=== PATIENT | female | born 2000 | race Caucasian/White ===

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

== ENCOUNTER 2022-06-19 07:47 | Inpatient (IN) | payer MEDICAID, OTHER ==
[~2022-06-19] VITALS: Ht 154.9 cm; Wt 48.3 kg
[~2022-06-19 07:47] MED LIST changes: +ARIP10TA38 PO; -FLUO-191 PO; -MIRT-89 PO; +SERT-439 PO
[2022-06-19] MEDS ORDERED: SODIUM CHLORIDE 0.9% 500 ML IV ONE (08:15)
[2022-06-19 08:48] LABS: BASOPHILS % (AUTO) 0.5 % (0.0-2.0); EOSINOPHILS % (AUTO) 0 % (1.0-6.0); HEMATOCRIT 39.6 % (36-46); HEMOGLOBIN 13.7 g/dL (12.0-16.0); LYMPHOCYTES # (AUTO) 1.2 K/uL (1.0-4.8); LYMPHOCYTES % (AUTO) 15.9 % (22.0-44.0); MEAN CORPUSCULAR HEMOGLOBIN 34.3 pg (26.0-34.0); MEAN CORPUSCULAR HGB CONC 34.5 G/dL (31.0-37.0); MEAN CORPUSCULAR VOLUME 99 fL (80-100); MONOCYTES # (AUTO) 0.6 K/uL (0.1-1.0); MONOCYTES % (AUTO) 7.3 % (2.0-9.0); NEUTROPHILS # (AUTO) 5.9 K/uL (1.8-7.7); NEUTROPHILS % (AUTO) 76.3 % (40.0-70.0); PLATELET COUNT (AUTO) 225 K/uL (150-450); RED BLOOD CELL COUNT(AUTO) 3.98 MIL/uL (4.00-5.20)
[2022-06-19 09:00] LABS: ANION GAP 6 mmol/L (8-16); CALCIUM, TOTAL 9.1 mg/dL (8.8-10.5); CARBON DIOXIDE 29 mmol/L (22-29); CHLORIDE 102 mmol/L (98-107); CREATININE 0.66 mg/dL (0.60-1.30); GLUCOSE,RANDOM 95 mg/dL (70-110); POTASSIUM 3.4 mmol/L (3.5-5.1); SODIUM SERUM 137 mmol/L (136-145); UREA NITROGEN, BLOOD 8 mg/dL (7-18)
[2022-06-19 09:03] LABS: GLOMERULAR FILTR. RATE CALC > 60 mL/min (>60)
[2022-06-19 09:05] LABS: ALANINE AMINOTRANSFERASE 24 U/L (12-78); ALBUMIN 3.9 g/dL (3.4-5.0); ALKALINE PHOSPHATASE 65 U/L (46-116); ASPARTATE AMINOTRANSFERASE 25 U/L (15-37); BILIRUBIN,TOTAL 0.6 mg/dL (0.1-1.0); TOTAL PROTEIN, SERUM 7.2 g/dL (6.4-8.2)
[2022-06-19 09:09] LABS: ACETAMINOPHEN < 2 mcg/mL (10-30)
[2022-06-19 09:15] LABS: SALICYLATE 4.3 mg/dL (2.8-20.0)
[2022-06-19 13:10] LABS: COVID AG,FIA SOURCE NASAL SWAB
[2022-06-19] MEDS ORDERED: ZOLPIDEM TARTRATE 10 MG TABLET PO PRN (16:30)
[2022-06-19] MEDS ORDERED: LORazepam 2 MG TABLET PO PRN (16:30)
[2022-06-19] MEDS ORDERED: HALOPERIDOL 5 MG TABLET PO PRN (16:30)
[2022-06-19 16:36] LABS: SALICYLATE 0.2 mg/dL (2.8-20.0)
[2022-06-19 16:37] LABS: ACETAMINOPHEN < 2 mcg/mL (10-30)
[2022-06-19 17:30] VITALS: BP 91/79
[2022-06-19] MEDS ORDERED: MAG HYDROX/AL HYDROX/SIMETH ES 30 ML SUSPENSION UDCUP PO PRN (20:45)
[2022-06-19] MEDS ORDERED: ONDANSETRON HCL 4 MG TABLET PO PRN (20:45)
[2022-06-19] MEDS ORDERED: ACETAMINOPHEN 325 MG TABLET PO PRN (20:45)
[2022-06-19] MEDS ORDERED: PETROLATUM,WHITE 28 GM JELLY TP PRN (20:45)
[2022-06-19] MEDS ORDERED: GuaiFENesin/D-METHORPHAN [SUGAR-FREE] 200-20MG/10 ML SYRUP UDCUP PO PRN (20:45)
[2022-06-19] MEDS ORDERED: LOPERAMIDE HCL 2 MG CAPSULE PO PRN (20:45)
[2022-06-19] MEDS ORDERED: ALBUTEROL SULFATE HFA 90 MCG/PUFF 8 GM INHALER IH PRN (20:45)
[2022-06-19] MEDS ORDERED: MAGNESIUM HYDROXIDE SUSPENSION 30 ML UDCUP PO PRN (20:45)
[2022-06-19] MEDS ORDERED: IBUPROFEN 400 MG TABLET PO PRN (20:45)
[2022-06-19] MEDS ORDERED: DOCUSATE SODIUM 100 MG CAPSULE PO PRN (20:45)
[2022-06-19] MEDS ORDERED: NICOTINE 14 MG/24 HOUR PATCH TD PRN (20:45)
[2022-06-19] MEDS ORDERED: CloNIDine HCL 0.1 MG TABLET PO PRN (20:45)
[2022-06-19] MEDS: ZONISAMIDE 100 MG CAPSULE PO SCH (23:02)
[2022-06-20 08:00] VITALS: BP 99/62
[2022-06-20] MEDS ORDERED: NICOTINE 14 MG/24 HOUR PATCH TD PRN (11:30)
[2022-06-20] MEDS ORDERED: MAGNESIUM HYDROXIDE SUSPENSION 30 ML UDCUP PO PRN (11:30)
[2022-06-20] MEDS ORDERED: DOCUSATE SODIUM 100 MG CAPSULE PO PRN (11:30)
[2022-06-20] MEDS ORDERED: ONDANSETRON HCL 4 MG TABLET PO PRN (11:30)
[2022-06-20] MEDS ORDERED: ALBUTEROL SULFATE HFA 90 MCG/PUFF 8 GM INHALER IH PRN (11:30)
[2022-06-20] MEDS ORDERED: LOPERAMIDE HCL 2 MG CAPSULE PO PRN (11:30)
[2022-06-20] MEDS ORDERED: ACETAMINOPHEN 325 MG TABLET PO PRN (11:30)
[2022-06-20] MEDS ORDERED: MAG HYDROX/AL HYDROX/SIMETH ES 30 ML SUSPENSION UDCUP PO PRN (11:30)
[2022-06-20] MEDS ORDERED: CloNIDine HCL 0.1 MG TABLET PO PRN (11:30)
[2022-06-20] MEDS ORDERED: PETROLATUM,WHITE 28 GM JELLY TP PRN (11:30)
[2022-06-20] MEDS ORDERED: IBUPROFEN 400 MG TABLET PO PRN (11:30)
[2022-06-20] MEDS: SERTRALINE HCL 50 MG TABLET PO SCH (12:31)
[2022-06-20] MEDS: ARIPiprazole 10 MG TABLET PO SCH (12:31)
[2022-06-20 16:00] VITALS: BP 96/54
[2022-06-20] MEDS: ZONISAMIDE 100 MG CAPSULE PO SCH (21:24)
[2022-06-21 08:22] VITALS: BP 99/63
[2022-06-21] MEDS: ARIPiprazole 10 MG TABLET PO SCH (08:59)
[2022-06-21] MEDS: SERTRALINE HCL 50 MG TABLET PO SCH (08:59)
[2022-06-21 16:00] VITALS: BP 101/70
[2022-06-21 20:08] VITALS: BP 106/66
[2022-06-21] MEDS: ZONISAMIDE 100 MG CAPSULE PO SCH (20:59)
[2022-06-22] MEDS: SERTRALINE HCL 50 MG TABLET PO SCH (09:14)
[2022-06-22] MEDS: ARIPiprazole 10 MG TABLET PO SCH (09:14)
[2022-06-22 09:23] VITALS: BP 112/74
[2022-06-22] MEDS: ZONISAMIDE 100 MG CAPSULE PO SCH (21:18)
[2022-06-23 08:00] VITALS: BP 130/89
[2022-06-23] MEDS: ARIPiprazole 10 MG TABLET PO SCH (09:15)
[2022-06-23] MEDS: SERTRALINE HCL 50 MG TABLET PO SCH (09:15)
[2022-06-23] MEDS: GuaiFENesin/D-METHORPHAN [SUGAR-FREE] 200-20MG/10 ML SYRUP UDCUP PO PRN ×2 (10:36→18:53)
[2022-06-23 16:00] VITALS: BP 105/74
[2022-06-23] MEDS: ZONISAMIDE 100 MG CAPSULE PO SCH (20:43)
[2022-06-24 08:00] VITALS: BP 110/73
[2022-06-24] MEDS: ARIPiprazole 10 MG TABLET PO SCH (09:47)
[2022-06-24] MEDS: GuaiFENesin/D-METHORPHAN [SUGAR-FREE] 200-20MG/10 ML SYRUP UDCUP PO PRN (09:47)
[2022-06-24] MEDS: SERTRALINE HCL 50 MG TABLET PO SCH (09:48)
[2022-06-24] MEDS ORDERED: SERT-439 PO (09:58)
[2022-06-24] MEDS ORDERED: ARIP10TA38 PO (09:58)
== END 2022-06-24 15:10 | disposition home or self-care (01) | DRG 750 ==
LOC: EMS 07:53 → 3EI 16:43
PROVIDERS: ADMIT Psychiatry & Neurology Child & Adolescent Psychiatry; ATTEND Psychiatry & Neurology Child & Adolescent Psychiatry
DX: F25.9 Schizoaffective disorder, unspecified (principal); I95.9 Hypotension, unspecified; R45.851 Suicidal ideations; Z20.822 Contact with and (suspected) exposure to COVID-19; G40.909 Epilepsy, unspecified, not intractable, without status epilepticus; T42.4X2A Poisoning by benzodiazepines, intentional self-harm, initial encounter; E87.6 Hypokalemia; Z91.51 Personal history of suicidal behavior
CPT/HCPCS: 80053; 83735; 84132; 84703; 85025; 93005; G0480; G0481; J7040

== ENCOUNTER 2022-09-03 19:51 | Inpatient (IN) | payer MEDICAID, OTHER ==
[~2022-09-03] VITALS: Ht 152.4 cm; Wt 56.7 kg
[2022-09-03 20:32] LABS: BASOPHILS % (AUTO) 0.5 % (0.0-2.0); EOSINOPHILS % (AUTO) 0.1 % (1.0-6.0); HEMATOCRIT 41.2 % (36-46); HEMOGLOBIN 13.6 g/dL (12.0-16.0); LYMPHOCYTES # (AUTO) 1.3 K/uL (1.0-4.8); LYMPHOCYTES % (AUTO) 19.7 % (22.0-44.0); MEAN CORPUSCULAR VOLUME 100 fL (80-100); MONOCYTES # (AUTO) 0.5 K/uL (0.1-1.0); MONOCYTES % (AUTO) 8.1 % (2.0-9.0); NEUTROPHILS # (AUTO) 4.6 K/uL (1.8-7.7); NEUTROPHILS % (AUTO) 71.6 % (40.0-70.0); PLATELET COUNT (AUTO) 215 K/uL (150-450); RED BLOOD CELL COUNT(AUTO) 4.12 MIL/uL (4.00-5.20); RED CELL DISTRIBUTION WIDTH 12.7 % (11.5-14.5)
[2022-09-03 20:46] LABS: ANION GAP 11 mmol/L (8-16); CALCIUM, TOTAL 8.7 mg/dL (8.8-10.5); CARBON DIOXIDE 23 mmol/L (22-29); CHLORIDE 106 mmol/L (98-107); CREATININE 0.75 mg/dL (0.60-1.30); GLOMERULAR FILTR. RATE CALC > 60 mL/min (>60); GLUCOSE,RANDOM 120 mg/dL (70-110); POTASSIUM 3.4 mmol/L (3.5-5.1); SODIUM SERUM 140 mmol/L (136-145); UREA NITROGEN, BLOOD 12 mg/dL (7-18)
[2022-09-03 20:52] LABS: ALANINE AMINOTRANSFERASE 21 U/L (12-78); ALKALINE PHOSPHATASE 70 U/L (46-116); ASPARTATE AMINOTRANSFERASE 16 U/L (15-37); BILIRUBIN,TOTAL 0.1 mg/dL (0.1-1.0); HCG,QUANTITATIVE < 1 mIU/mL (0-6); TOTAL PROTEIN, SERUM 8.3 g/dL (6.4-8.2)
[2022-09-03 20:54] LABS: ACETAMINOPHEN < 2 mcg/mL (10-30)
[2022-09-03] MEDS ORDERED: CLOB10TA PO (21:44)
[2022-09-03] MEDS ORDERED: PRAZ1 PO (21:44)
[2022-09-03] MEDS ORDERED: ZONI100C87 PO (21:44)
[2022-09-03] MEDS ORDERED: DOCU-385 PO (21:44)
[2022-09-03] MEDS ORDERED: OLAN5TAB52 PO (21:44)
[2022-09-03] MEDS ORDERED: SODIUM CHLORIDE 0.9% 1,000 ML IV ONE (22:15)
[2022-09-03 23:14] LABS: AMPHET/METH SCREEN,URINE NEGATIVE (NEGATIVE); BARBITURATE SCREEN, URINE NEGATIVE (NEGATIVE); BENZODIAZEPINES SCREEN,URINE POSITIVE (NEGATIVE); CANNABINOID SCREEN,URINE NEGATIVE (NEGATIVE); COCAINE SCREEN,URINE NEGATIVE (NEGATIVE); METHADONE SCREEN, URINE NEGATIVE (NEGATIVE); OPIATE SCREEN,URINE NEGATIVE (NEGATIVE)
[2022-09-03 23:19] LABS: PHENCYCLIDINE SCREEN,URINE NEGATIVE (NEGATIVE)
[2022-09-04 00:06] LABS: COVID AG,FIA SOURCE NASAL SWAB
[2022-09-04] MEDS ORDERED: SODIUM CHLORIDE 0.9% 1,000 ML IV ONE ×2 (00:15→01:45)
[2022-09-04] MEDS ORDERED: HALOPERIDOL 5 MG TABLET PO PRN (01:15)
[2022-09-04] MEDS ORDERED: ZOLPIDEM TARTRATE 10 MG TABLET PO PRN (01:15)
[2022-09-04] MEDS ORDERED: LORazepam 2 MG TABLET PO PRN (01:15)
[2022-09-04 01:24] LABS: APPEARANCE,URINE HAZY (CLEAR); BILIRUBIN,URINE NEGATIVE (NEGATIVE); GLUCOSE, URINE (UA) NEGATIVE (NEGATIVE); KETONES,URINE NEGATIVE (NEGATIVE); LEUKOCYTE ESTERASE ,URINE NEGATIVE (NEGATIVE); NITRATE,URINE NEGATIVE (NEGATIVE); OCCULT BLOOD,URINE NEGATIVE (NEGATIVE); PH,URINE 7.5 (5.0-8.0); PROTEIN,URINE NEGATIVE (NEGATIVE); SPECIFIC GRAVITIY, URINE 1.023 (1.003-1.030); UROBILINOGEN,URINE <=1.0 mg/dL (<=1.0)
[2022-09-04] MEDS ORDERED: LORazepam 2 MG/ML VIAL IVP ONE (01:45)
[2022-09-04 03:30] VITALS: BP 103/67
[2022-09-04 08:18] VITALS: BP 91/54
[2022-09-04] MEDS ORDERED: LOPERAMIDE HCL 2 MG CAPSULE PO PRN (10:15)
[2022-09-04] MEDS ORDERED: ALBUTEROL SULFATE HFA 90 MCG/PUFF 8 GM INHALER IH PRN (10:15)
[2022-09-04] MEDS ORDERED: PETROLATUM,WHITE 28 GM JELLY TP PRN (10:15)
[2022-09-04] MEDS ORDERED: ACETAMINOPHEN 325 MG TABLET PO PRN (10:15)
[2022-09-04] MEDS ORDERED: MAG HYDROX/AL HYDROX/SIMETH ES 30 ML SUSPENSION UDCUP PO PRN (10:15)
[2022-09-04] MEDS ORDERED: ONDANSETRON HCL 4 MG TABLET PO PRN (10:15)
[2022-09-04] MEDS ORDERED: IBUPROFEN 400 MG TABLET PO PRN (10:15)
[2022-09-04] MEDS ORDERED: GuaiFENesin/D-METHORPHAN [SUGAR-FREE] 200-20MG/10 ML SYRUP UDCUP PO PRN (10:15)
[2022-09-04] MEDS ORDERED: NICOTINE 14 MG/24 HOUR PATCH TD PRN (10:15)
[2022-09-04] MEDS ORDERED: CloNIDine HCL 0.1 MG TABLET PO PRN (10:15)
[2022-09-04] MEDS: ZONISAMIDE 100 MG CAPSULE PO SCH (10:26)
[2022-09-04] MEDS: SERTRALINE HCL 100 MG TABLET PO SCH (11:32)
[2022-09-04] MEDS: DOCUSATE SODIUM 100 MG CAPSULE PO PRN (14:41)
[2022-09-04] MEDS: MAGNESIUM HYDROXIDE SUSPENSION 30 ML UDCUP PO PRN (14:41)
[2022-09-04 16:17] VITALS: BP 103/64
[2022-09-04] MEDS: CLOBAZAM 10 MG PO SCH (18:34)
[2022-09-04] MEDS: OLANZapine 5 MG TABLET PO SCH (20:08)
[2022-09-04] MEDS: PRAZOSIN HCL 2 MG CAPSULE PO SCH (20:08)
[2022-09-05 08:43] VITALS: BP 105/72
[2022-09-05] MEDS: ZONISAMIDE 100 MG CAPSULE PO SCH (08:58)
[2022-09-05] MEDS: CLOBAZAM 10 MG PO SCH ×2 (08:58→16:21)
[2022-09-05] MEDS: SERTRALINE HCL 100 MG TABLET PO SCH (08:59)
[2022-09-05] MEDS ORDERED: ZONISAMIDE 100 MG CAPSULE PO SCH (09:00)
[2022-09-05 16:09] VITALS: BP 109/75
[2022-09-05] MEDS: PRAZOSIN HCL 2 MG CAPSULE PO SCH (20:43)
[2022-09-05] MEDS: OLANZapine 5 MG TABLET PO SCH (20:43)
[2022-09-06 08:51] VITALS: BP 112/66
[2022-09-06] MEDS: ZONISAMIDE 100 MG CAPSULE PO SCH (09:28)
[2022-09-06] MEDS: CLOBAZAM 10 MG PO SCH ×2 (09:28→17:10)
[2022-09-06] MEDS: SERTRALINE HCL 100 MG TABLET PO SCH (09:28)
[2022-09-06 16:12] VITALS: BP 91/62
[2022-09-06] MEDS: OLANZapine 5 MG TABLET PO SCH (20:37)
[2022-09-06] MEDS: PRAZOSIN HCL 2 MG CAPSULE PO SCH (20:37)
[2022-09-07 08:30] VITALS: BP 124/99
[2022-09-07] MEDS: CLOBAZAM 10 MG PO SCH ×2 (10:30→17:34)
[2022-09-07] MEDS: ZONISAMIDE 100 MG CAPSULE PO SCH (10:30)
[2022-09-07] MEDS: SERTRALINE HCL 100 MG TABLET PO SCH (10:30)
[2022-09-07] MEDS: PRAZOSIN HCL 2 MG CAPSULE PO SCH (20:59)
[2022-09-07] MEDS: OLANZapine 5 MG TABLET PO SCH (20:59)
[2022-09-08] MEDS: CLOBAZAM 10 MG PO SCH ×2 (08:30→16:38)
[2022-09-08] MEDS: SERTRALINE HCL 100 MG TABLET PO SCH (08:30)
[2022-09-08] MEDS: ZONISAMIDE 100 MG CAPSULE PO SCH (08:30)
[2022-09-08 09:37] VITALS: BP 104/58
[2022-09-08 16:12] VITALS: BP 109/78
[2022-09-08] MEDS: OLANZapine 5 MG TABLET PO SCH (20:48)
[2022-09-08] MEDS: PRAZOSIN HCL 2 MG CAPSULE PO SCH (20:49)
[2022-09-09] MEDS: SERTRALINE HCL 100 MG TABLET PO SCH (08:16)
[2022-09-09] MEDS: ZONISAMIDE 100 MG CAPSULE PO SCH (08:16)
[2022-09-09] MEDS: CLOBAZAM 10 MG PO SCH ×2 (08:17→16:03)
[2022-09-09 09:34] VITALS: BP 96/73
[2022-09-09] MEDS: DOCUSATE SODIUM 100 MG CAPSULE PO PRN (15:45)
[2022-09-09 17:07] VITALS: BP 137/97
[2022-09-09] MEDS: PRAZOSIN HCL 2 MG CAPSULE PO SCH (20:55)
[2022-09-09] MEDS: OLANZapine 5 MG TABLET PO SCH (20:55)
[2022-09-10 08:00] LABS: COVID AG,FIA SOURCE NASAL SWAB
[2022-09-10] MEDS: SERTRALINE HCL 100 MG TABLET PO SCH (09:04)
[2022-09-10] MEDS: CLOBAZAM 10 MG PO SCH ×2 (09:04→16:08)
[2022-09-10] MEDS: ZONISAMIDE 100 MG CAPSULE PO SCH (09:05)
[2022-09-10 09:13] VITALS: BP 107/70
[2022-09-10] MEDS: DOCUSATE SODIUM 100 MG CAPSULE PO PRN (12:34)
[2022-09-10 16:28] VITALS: BP 117/65
[2022-09-10] MEDS: PRAZOSIN HCL 2 MG CAPSULE PO SCH (20:24)
[2022-09-10] MEDS: OLANZapine 5 MG TABLET PO SCH (20:24)
[2022-09-10] MEDS: MAGNESIUM HYDROXIDE SUSPENSION 30 ML UDCUP PO PRN (20:27)
[2022-09-11] MEDS: ZONISAMIDE 100 MG CAPSULE PO SCH (09:02)
[2022-09-11] MEDS: SERTRALINE HCL 100 MG TABLET PO SCH (09:02)
[2022-09-11] MEDS: CLOBAZAM 10 MG PO SCH (09:02)
[2022-09-11 09:07] VITALS: BP 117/60
[2022-09-11] MEDS: MAGNESIUM HYDROXIDE SUSPENSION 30 ML UDCUP PO PRN (09:14)
[2022-09-11] MEDS ORDERED: OLAN5TAB52 PO (11:35)
[2022-09-11] MEDS ORDERED: PRAZ2 PO (11:35)
[2022-09-11] MEDS ORDERED: SERT-440 PO (11:35)
== END 2022-09-11 15:00 | disposition home or self-care (01) | DRG 751 ==
LOC: EMS 20:21 → 3EI 09-04 04:05
PROVIDERS: ADMIT Psychiatry & Neurology Psychiatry; ATTEND Psychiatry & Neurology Psychiatry
DX: F33.2 Major depressive disorder, recurrent severe without psychotic features (principal); G40.909 Epilepsy, unspecified, not intractable, without status epilepticus; E87.6 Hypokalemia; Z20.822 Contact with and (suspected) exposure to COVID-19; F41.9 Anxiety disorder, unspecified; R00.0 Tachycardia, unspecified; K59.00 Constipation, unspecified; T43.222A Poisoning by selective serotonin reuptake inhibitors, intentional self-harm, initial encounter; Y92.89 Other specified places as the place of occurrence of the external cause; Z59.00 Homelessness unspecified; Z79.899 Other long term (current) drug therapy
CPT/HCPCS: 80053; 80307; 81003; 83735; 84132; 84702; 85025; 93005; 99285; G0480; G0481; J2060; Q9967

== ENCOUNTER 2022-10-26 21:45 | Inpatient (IN) | payer MEDICAID, OTHER ==
[~2022-10-26] VITALS: Ht 154.9 cm; Wt 51.5 kg
[~2022-10-26 21:45] MED LIST changes: -ARIP10TA38 PO; +OLAN5TAB52 PO; +PRAZ2 PO; -SERT-439 PO; +SERT-440 PO
[2022-10-26 22:47] LABS: AMPHET/METH SCREEN,URINE NEGATIVE (NEGATIVE); BARBITURATE SCREEN, URINE NEGATIVE (NEGATIVE); BENZODIAZEPINES SCREEN,URINE POSITIVE (NEGATIVE); CANNABINOID SCREEN,URINE NEGATIVE (NEGATIVE); COCAINE SCREEN,URINE NEGATIVE (NEGATIVE); METHADONE SCREEN, URINE NEGATIVE (NEGATIVE); OPIATE SCREEN,URINE NEGATIVE (NEGATIVE); PHENCYCLIDINE SCREEN,URINE NEGATIVE (NEGATIVE)
[2022-10-26] MEDS ORDERED: OLANZapine 5 MG RAPDIS TABLET PO PRN (23:15)
[2022-10-26] MEDS ORDERED: LORazepam 2 MG TABLET PO PRN (23:15)
[2022-10-26 23:39] LABS: COVID AG,FIA SOURCE NASOPHARYNGEAL
[2022-10-26 23:42] LABS: BASOPHILS % (AUTO) 0.6 % (0.0-2.0); EOSINOPHILS % (AUTO) 0.1 % (1.0-6.0); HEMATOCRIT 41.6 % (36-46); HEMOGLOBIN 14.1 g/dL (12.0-16.0); LYMPHOCYTES # (AUTO) 1.3 K/uL (1.0-4.8); LYMPHOCYTES % (AUTO) 23.3 % (22.0-44.0); MEAN CORPUSCULAR HEMOGLOBIN 33.2 pg (26.0-34.0); MEAN CORPUSCULAR HGB CONC 33.8 G/dL (31.0-37.0); MEAN CORPUSCULAR VOLUME 98 fL (80-100); MONOCYTES # (AUTO) 0.5 K/uL (0.1-1.0); MONOCYTES % (AUTO) 8.1 % (2.0-9.0); NEUTROPHILS # (AUTO) 3.8 K/uL (1.8-7.7); NEUTROPHILS % (AUTO) 67.9 % (40.0-70.0); PLATELET COUNT (AUTO) 222 K/uL (150-450); RED BLOOD CELL COUNT(AUTO) 4.25 MIL/uL (4.00-5.20); RED CELL DISTRIBUTION WIDTH 12.6 % (11.5-14.5)
[2022-10-26 23:54] LABS: ANION GAP 12 mmol/L (8-16); CALCIUM, TOTAL 9.1 mg/dL (8.8-10.5); CARBON DIOXIDE 26 mmol/L (22-29); CHLORIDE 104 mmol/L (98-107); CREATININE 0.72 mg/dL (0.60-1.30); GLOMERULAR FILTR. RATE CALC > 60 mL/min (>60); GLUCOSE,RANDOM 119 mg/dL (70-110); POTASSIUM 3.2 mmol/L (3.5-5.1); SODIUM SERUM 142 mmol/L (136-145); UREA NITROGEN, BLOOD 4 mg/dL (7-18)
[2022-10-27 00:03] LABS: ALANINE AMINOTRANSFERASE 23 U/L (12-78); ALBUMIN 4.6 g/dL (3.4-5.0); ALKALINE PHOSPHATASE 75 U/L (46-116); ASPARTATE AMINOTRANSFERASE 20 U/L (15-37); BILIRUBIN,TOTAL 0.2 mg/dL (0.1-1.0); HCG,QUANTITATIVE < 1 mIU/mL (0-6); TOTAL PROTEIN, SERUM 8.2 g/dL (6.4-8.2)
[2022-10-27 01:48] LABS: SALICYLATE 0.9 mg/dL (2.8-20.0)
[2022-10-27 01:49] LABS: ACETAMINOPHEN < 2 mcg/mL (10-30)
[2022-10-27 03:39] VITALS: BP 123/68
[2022-10-27 03:47] VITALS: BP 123/68
[2022-10-27 06:52] LABS: APPEARANCE,URINE CLEAR (CLEAR); BILIRUBIN,URINE NEGATIVE (NEGATIVE); GLUCOSE, URINE (UA) NEGATIVE (NEGATIVE); KETONES,URINE NEGATIVE (NEGATIVE); LEUKOCYTE ESTERASE ,URINE NEGATIVE (NEGATIVE); NITRATE,URINE NEGATIVE (NEGATIVE); OCCULT BLOOD,URINE NEGATIVE (NEGATIVE); PH,URINE 7.5 (5.0-8.0); PROTEIN,URINE NEGATIVE (NEGATIVE); SPECIFIC GRAVITIY, URINE 1.007 (1.003-1.030); UROBILINOGEN,URINE <=1.0 mg/dL (<=1.0)
[2022-10-27 09:31] VITALS: BP 105/62
[2022-10-27] MEDS ORDERED: MAGNESIUM HYDROXIDE SUSPENSION 30 ML UDCUP PO PRN (11:00)
[2022-10-27] MEDS ORDERED: HydrOXYzine PAMOATE 50 MG CAPSULE PO PRN (11:00)
[2022-10-27] MEDS ORDERED: LOPERAMIDE HCL 2 MG CAPSULE PO PRN (11:00)
[2022-10-27] MEDS ORDERED: PROMETHAZINE HCL 25 MG TABLET PO PRN (11:00)
[2022-10-27] MEDS ORDERED: ACETAMINOPHEN 325 MG TABLET PO PRN (11:00)
[2022-10-27] MEDS ORDERED: MAG HYDROX/AL HYDROX/SIMETH ES 30 ML SUSPENSION UDCUP PO PRN (11:00)
[2022-10-27] MEDS ORDERED: GuaiFENesin/D-METHORPHAN [SUGAR-FREE] 200-20MG/10 ML SYRUP UDCUP PO PRN (11:00)
[2022-10-27] MEDS ORDERED: TUBERCULIN, PURIFIED PROTEIN DERIVATIVE 5 TU/0.1 ML SYRINGE ID ONE (11:00)
[2022-10-27 16:00] VITALS: BP 99/66
[2022-10-27] MEDS: THIAMINE 100 MG TABLET PO SCH (18:00)
[2022-10-27] MEDS ORDERED: POTASSIUM CHLORIDE 20 MEQ ER TABLET PO ONE (20:30)
[2022-10-27] MEDS: MELATONIN 5 MG TABLET PO SCH (20:53)
[2022-10-27 20:55] VITALS: BP 145/95
[2022-10-28 07:45] LABS: HEMOGLOBIN A1C 4.9 % (3.8-5.6)
[2022-10-28 07:50] LABS: ANION GAP 7 mmol/L (8-16); CARBON DIOXIDE 28 mmol/L (22-29); CHLORIDE 105 mmol/L (98-107); CREATININE 0.65 mg/dL (0.60-1.30); GLOMERULAR FILTR. RATE CALC > 60 mL/min (>60); GLUCOSE,RANDOM 88 mg/dL (70-110); SODIUM SERUM 140 mmol/L (136-145); UREA NITROGEN, BLOOD 8 mg/dL (7-18)
[2022-10-28 08:08] LABS: CHOL/HDL RATIO 2.9 (3.9-5.7); THYROID STIMULATING HORMONE 0.84 uIU/mL (0.36-3.74)
[2022-10-28] MEDS: OMEGA-3/DHA/EPA/FISH OIL 1,000 MG CAPSULE PO SCH (08:10)
[2022-10-28] MEDS: NALTREXONE HCL 50 MG TABLET PO SCH (08:10)
[2022-10-28] MEDS: FOLIC ACID 1 MG TABLET PO SCH (08:10)
[2022-10-28] MEDS: THIAMINE 100 MG TABLET PO SCH ×2 (08:10→16:54)
[2022-10-28] MEDS: DEXTROMETHORPHAN HBR/QUINIDINE 20/10 MG CAPSULE PO SCH (08:10)
[2022-10-28] MEDS: MULTIVITAMINS WITH MINERALS, THERAPEUTIC TABLET PO SCH (08:10)
[2022-10-28 08:30] VITALS: BP 113/68
[2022-10-28] MEDS ORDERED: FLUoxetine HCL 20 MG CAPSULE PO SCH (09:00)
[2022-10-28] MEDS: ZONISAMIDE 100 MG CAPSULE PO SCH (11:53)
[2022-10-28 16:15] VITALS: BP 110/70
[2022-10-28] MEDS: LURASIDONE HCL 20 MG TABLET PO SCH (16:54)
[2022-10-28] MEDS: MELATONIN 5 MG TABLET PO SCH (21:16)
[2022-10-28 21:21] VITALS: BP 111/71
[2022-10-28] MEDS: ZOLPIDEM TARTRATE 10 MG TABLET PO PRN (21:57)
[2022-10-29] MEDS: FLUoxetine HCL 20 MG CAPSULE PO SCH (08:58)
[2022-10-29] MEDS: THIAMINE 100 MG TABLET PO SCH ×2 (08:58→17:31)
[2022-10-29 08:59] VITALS: BP 111/63
[2022-10-29] MEDS: OMEGA-3/DHA/EPA/FISH OIL 1,000 MG CAPSULE PO SCH (09:00)
[2022-10-29] MEDS: FOLIC ACID 1 MG TABLET PO SCH (09:01)
[2022-10-29] MEDS: MULTIVITAMINS WITH MINERALS, THERAPEUTIC TABLET PO SCH (09:01)
[2022-10-29] MEDS: NALTREXONE HCL 50 MG TABLET PO SCH (09:02)
[2022-10-29] MEDS: ZONISAMIDE 100 MG CAPSULE PO SCH (09:04)
[2022-10-29] MEDS: DEXTROMETHORPHAN HBR/QUINIDINE 20/10 MG CAPSULE PO SCH (09:04)
[2022-10-29] MEDS: LURASIDONE HCL 20 MG TABLET PO SCH (17:31)
[2022-10-29 20:36] VITALS: BP 123/85
[2022-10-29] MEDS: MELATONIN 5 MG TABLET PO SCH (20:52)
[2022-10-29] MEDS ORDERED: PRAZOSIN HCL 1 MG CAPSULE PO SCH (21:00)
[2022-10-29] MEDS ORDERED: NALT50TA PO (21:05)
[2022-10-29] MEDS ORDERED: LURA20TA2 PO (21:05)
[2022-10-29] MEDS ORDERED: FLUO20CA36 PO (21:05)
[2022-10-29] MEDS ORDERED: MELA5TAB40 PO (21:05)
[2022-10-29] MEDS ORDERED: OMEG-135 PO (21:05)
[2022-10-29] MEDS ORDERED: PRAZ1 PO (21:05)
[2022-10-29] MEDS: ZOLPIDEM TARTRATE 10 MG TABLET PO PRN (21:45)
[2022-10-30] MEDS: ZONISAMIDE 100 MG CAPSULE PO SCH (08:18)
[2022-10-30] MEDS: DEXTROMETHORPHAN HBR/QUINIDINE 20/10 MG CAPSULE PO SCH (08:18)
[2022-10-30] MEDS: MULTIVITAMINS WITH MINERALS, THERAPEUTIC TABLET PO SCH (08:21)
[2022-10-30] MEDS: THIAMINE 100 MG TABLET PO SCH (08:21)
[2022-10-30] MEDS: OMEGA-3/DHA/EPA/FISH OIL 1,000 MG CAPSULE PO SCH (08:21)
[2022-10-30] MEDS: NALTREXONE HCL 50 MG TABLET PO SCH (08:21)
[2022-10-30] MEDS: FLUoxetine HCL 20 MG CAPSULE PO SCH (08:21)
[2022-10-30] MEDS: FOLIC ACID 1 MG TABLET PO SCH (08:21)
== END 2022-10-30 13:15 | disposition home or self-care (01) | DRG 750 ==
LOC: EMS 21:48 → 3EI 23:00
PROVIDERS: ADMIT Psychiatry & Neurology Psychiatry; ATTEND Psychiatry & Neurology Psychiatry
DX: F25.1 Schizoaffective disorder, depressive type (principal); E87.6 Hypokalemia; Z20.822 Contact with and (suspected) exposure to COVID-19; F43.10 Post-traumatic stress disorder, unspecified; K59.00 Constipation, unspecified; Z55.9 Problems related to education and literacy, unspecified; Z59.9 Problem related to housing and economic circumstances, unspecified; Z65.3 Problems related to other legal circumstances; Z63.9 Problem related to primary support group, unspecified; Z91.51 Personal history of suicidal behavior; Z82.49 Family history of ischemic heart disease and other diseases of the circulatory system
CPT/HCPCS: 80048; 80053; 80061; 80307; 81003; 83036; 84439; 84443; 84702; 85025; 86592; 93005; G0480; G0481; Q9967

== ENCOUNTER 2023-01-13 23:57 | Inpatient (IN) | payer MEDICAID ==
[~2023-01-13] VITALS: Ht 154.9 cm; Wt 49.0 kg
[~2023-01-13 23:57] MED LIST changes: +FLUO20CA36 PO; +LURA20TA2 PO; +MELA5TAB40 PO; +NALT50TA PO; -OLAN5TAB52 PO; +OMEG-135 PO; +PRAZ1 PO; -PRAZ2 PO; -SERT-440 PO
[2023-01-14 01:27] LABS: BASOPHILS % (AUTO) 0.7 % (0.0-2.0); EOSINOPHILS % (AUTO) 0.6 % (1.0-6.0); HEMATOCRIT 37.5 % (36-46); HEMOGLOBIN 12.8 g/dL (12.0-16.0); LYMPHOCYTES # (AUTO) 2.6 K/uL (1.0-4.8); LYMPHOCYTES % (AUTO) 32.9 % (22.0-44.0); MEAN CORPUSCULAR HEMOGLOBIN 33.7 pg (26.0-34.0); MEAN CORPUSCULAR HGB CONC 34.2 G/dL (31.0-37.0); MEAN CORPUSCULAR VOLUME 99 fL (80-100); MONOCYTES # (AUTO) 0.7 K/uL (0.1-1.0); MONOCYTES % (AUTO) 9.5 % (2.0-9.0); NEUTROPHILS # (AUTO) 4.4 K/uL (1.8-7.7); NEUTROPHILS % (AUTO) 56.3 % (40.0-70.0); PLATELET COUNT (AUTO) 239 K/uL (150-450); RED CELL DISTRIBUTION WIDTH 12.6 % (11.5-14.5)
[2023-01-14 01:37] LABS: ANION GAP 12 mmol/L (8-16); CARBON DIOXIDE 27 mmol/L (22-29); CHLORIDE 102 mmol/L (98-107); CREATININE 0.64 mg/dL (0.60-1.30); GLOMERULAR FILTR. RATE CALC > 60 mL/min (>60); GLUCOSE,RANDOM 111 mg/dL (70-110); POTASSIUM 3.1 mmol/L (3.5-5.1); SODIUM SERUM 141 mmol/L (136-145)
[2023-01-14 01:43] LABS: ACETAMINOPHEN < 2 mcg/mL (10-30); ALANINE AMINOTRANSFERASE 11 U/L (12-78); ALBUMIN 3.8 g/dL (3.4-5.0); ALKALINE PHOSPHATASE 68 U/L (46-116); ASPARTATE AMINOTRANSFERASE 12 U/L (15-37); BILIRUBIN,TOTAL 0.2 mg/dL (0.1-1.0); TOTAL PROTEIN, SERUM 7.3 g/dL (6.4-8.2)
[2023-01-14 01:51] LABS: SALICYLATE 0.6 mg/dL (2.8-20.0)
[2023-01-14] MEDS ORDERED: LORazepam 2 MG TABLET PO PRN (02:15)
[2023-01-14] MEDS ORDERED: HALOPERIDOL 5 MG TABLET PO PRN (02:15)
[2023-01-14] MEDS ORDERED: ZOLPIDEM TARTRATE 10 MG TABLET PO PRN (02:15)
[2023-01-14 02:48] LABS: APPEARANCE,URINE TURBID (CLEAR); BILIRUBIN,URINE NEGATIVE (NEGATIVE); GLUCOSE, URINE (UA) NEGATIVE (NEGATIVE); KETONES,URINE NEGATIVE (NEGATIVE); LEUKOCYTE ESTERASE ,URINE TRACE (NEGATIVE); NITRATE,URINE NEGATIVE (NEGATIVE); OCCULT BLOOD,URINE NEGATIVE (NEGATIVE); PH,URINE 6.5 (5.0-8.0); PROTEIN,URINE TRACE mg/dL (NEGATIVE); SPECIFIC GRAVITIY, URINE 1.014 (1.003-1.030); UROBILINOGEN,URINE <=1.0 mg/dL (<=1.0)
[2023-01-14 02:55] LABS: AMPHET/METH SCREEN,URINE NEGATIVE (NEGATIVE); BARBITURATE SCREEN, URINE NEGATIVE (NEGATIVE); BENZODIAZEPINES SCREEN,URINE POSITIVE (NEGATIVE); CANNABINOID SCREEN,URINE NEGATIVE (NEGATIVE); COCAINE SCREEN,URINE NEGATIVE (NEGATIVE); METHADONE SCREEN, URINE NEGATIVE (NEGATIVE); OPIATE SCREEN,URINE NEGATIVE (NEGATIVE); PHENCYCLIDINE SCREEN,URINE NEGATIVE (NEGATIVE)
[2023-01-14 03:09] LABS: COVID AG,FIA SOURCE NASOPHARYNGEAL
[2023-01-14 03:10] LABS: AMORPHOUS SEDIMENT,UR Many /LPF (None Seen); BACTERIA,URINE None Seen /HPF (None Seen); RBC,URINE None Seen /HPF (0-2); SQUAMOUS EPITHELIAL CELL,UR Many /LPF (None Seen); URIC ACID CRYSTALS,URINE Few /LPF (None Seen); WBC,URINE 0-2 /HPF (0-5)
[2023-01-14] MEDS ORDERED: POTASSIUM CHLORIDE 10% 40 MEQ/30 ML LIQUID UDCUP PO ONE (03:45)
[2023-01-14 13:05] VITALS: BP 107/62
[2023-01-14] MEDS ORDERED: ONDANSETRON HCL 4 MG TABLET PO PRN (17:15)
[2023-01-14] MEDS ORDERED: BACITRACIN 28 GM OINTMENT TP PRN (17:15)
[2023-01-14] MEDS ORDERED: IBUPROFEN 600 MG TABLET PO PRN (17:15)
[2023-01-14] MEDS ORDERED: CloNIDine HCL 0.1 MG TABLET PO PRN (17:15)
[2023-01-14] MEDS ORDERED: ACETAMINOPHEN 325 MG TABLET PO PRN (17:15)
[2023-01-14] MEDS ORDERED: PETROLATUM,WHITE 28 GM JELLY TP PRN (17:15)
[2023-01-14] MEDS ORDERED: LOPERAMIDE HCL 2 MG CAPSULE PO PRN (17:15)
[2023-01-14] MEDS ORDERED: OMEPRAZOLE 20 MG CAPSULE PO PRN (17:15)
[2023-01-14] MEDS ORDERED: MAG HYDROX/AL HYDROX/SIMETH ES 30 ML SUSPENSION UDCUP PO PRN (17:15)
[2023-01-14] MEDS ORDERED: POTASSIUM CHLORIDE 20 MEQ ER TABLET PO ONE (17:15)
[2023-01-14] MEDS ORDERED: ALBUTEROL SULFATE HFA 90 MCG/PUFF 8 GM INHALER IH PRN (17:15)
[2023-01-14 20:31] VITALS: BP 99/63
[2023-01-15] MEDS: MAGNESIUM HYDROXIDE SUSPENSION 30 ML UDCUP PO PRN (12:34)
[2023-01-15 20:38] VITALS: BP 104/62
[2023-01-15] MEDS: ZONISAMIDE 100 MG CAPSULE PO SCH ×2 (21:00→22:17)
[2023-01-15] MEDS: DOCUSATE SODIUM 100 MG CAPSULE PO PRN (21:25)
[2023-01-16 07:07] LABS: HEPATITIS C AB (EIA) Non Reactive (Non Reactive)
[2023-01-16 09:02] VITALS: BP 100/60
[2023-01-16 20:32] VITALS: BP 102/63
[2023-01-16] MEDS: ZONISAMIDE 100 MG CAPSULE PO SCH (20:39)
[2023-01-17 08:19] VITALS: BP 107/62
[2023-01-17] MEDS: OLANZapine 7.5 MG TABLET PO SCH (08:22)
[2023-01-17] MEDS: SERTRALINE HCL 100 MG TABLET PO SCH (08:22)
[2023-01-17] MEDS: MAGNESIUM HYDROXIDE SUSPENSION 30 ML UDCUP PO PRN (09:59)
[2023-01-17] MEDS: ZONISAMIDE 100 MG CAPSULE PO SCH (20:29)
[2023-01-17 22:12] VITALS: BP 97/65
[2023-01-18 04:00] VITALS: BP 116/61
[2023-01-18] MEDS: SERTRALINE HCL 100 MG TABLET PO SCH (09:09)
[2023-01-18] MEDS: OLANZapine 7.5 MG TABLET PO SCH (09:09)
[2023-01-18] MEDS: DOCUSATE SODIUM 100 MG CAPSULE PO PRN (17:49)
[2023-01-18] MEDS: ZONISAMIDE 100 MG CAPSULE PO SCH (21:31)
[2023-01-18 22:25] VITALS: BP 105/85
[2023-01-19] MEDS: SERTRALINE HCL 100 MG TABLET PO SCH (08:12)
[2023-01-19] MEDS: OLANZapine 7.5 MG TABLET PO SCH (08:13)
[2023-01-19 08:38] VITALS: BP 109/76
[2023-01-19] MEDS: DOCUSATE SODIUM 100 MG CAPSULE PO PRN (12:05)
[2023-01-19] MEDS: MAGNESIUM HYDROXIDE SUSPENSION 30 ML UDCUP PO PRN (12:07)
[2023-01-19 20:15] VITALS: BP 122/73
[2023-01-19] MEDS: ZONISAMIDE 100 MG CAPSULE PO SCH (20:17)
[2023-01-20] MEDS: OLANZapine 7.5 MG TABLET PO SCH (08:04)
[2023-01-20] MEDS: SERTRALINE HCL 100 MG TABLET PO SCH (08:04)
[2023-01-20 08:09] VITALS: BP 100/65
[2023-01-20] MEDS: MAGNESIUM HYDROXIDE SUSPENSION 30 ML UDCUP PO PRN (08:32)
[2023-01-20] MEDS: DOCUSATE SODIUM 100 MG CAPSULE PO PRN (08:32)
[2023-01-20 20:03] VITALS: BP 104/67
[2023-01-20] MEDS: ZONISAMIDE 100 MG CAPSULE PO SCH (20:06)
[2023-01-21 05:08] LABS: HSV 1 TYPE SPECIFIC IGG <0.91 index (0.00-0.90)
[2023-01-21 07:07] LABS: HIV 1-2 SCREEN 4TH GEN W/RFLX Non Reactive (Non Reactive)
[2023-01-21] MEDS: SERTRALINE HCL 100 MG TABLET PO SCH (08:17)
[2023-01-21] MEDS: OLANZapine 7.5 MG TABLET PO SCH (08:17)
[2023-01-21 08:45] VITALS: BP 101/62
[2023-01-21] MEDS ORDERED: OLAN7.5T22 PO (11:23)
[2023-01-21] MEDS ORDERED: SERT-162 PO (11:24)
[2023-01-21] MEDS ORDERED: ZONI100C87 PO (11:25)
== END 2023-01-21 13:29 | disposition home or self-care (01) | DRG 750 ==
LOC: EMS 23:59 → B2S 01-14 09:42 → B3A 01-19 20:25
PROVIDERS: ADMIT Psychiatry & Neurology Psychiatry; ATTEND Psychiatry & Neurology Psychiatry
DX: F25.9 Schizoaffective disorder, unspecified (principal); F33.2 Major depressive disorder, recurrent severe without psychotic features; R45.851 Suicidal ideations; Z20.822 Contact with and (suspected) exposure to COVID-19; E87.6 Hypokalemia; F41.9 Anxiety disorder, unspecified; G40.909 Epilepsy, unspecified, not intractable, without status epilepticus; G47.00 Insomnia, unspecified; L30.9 Dermatitis, unspecified; T42.4X2A Poisoning by benzodiazepines, intentional self-harm, initial encounter; Y92.89 Other specified places as the place of occurrence of the external cause; Z79.899 Other long term (current) drug therapy
CPT/HCPCS: 80053; 80307; 81001; 84132; 84703; 85025; 86631; 86695; 86696; 86709; 86803; 87389; 99285; G0480; G0481

== ENCOUNTER 2023-02-13 18:56 | Emergency (ER) | payer MEDICAID, OTHER ==
[~2023-02-13] VITALS: Ht 152.4 cm; Wt 47.7 kg
[~2023-02-13 18:56] MED LIST changes: -FLUO20CA36 PO; -LURA20TA2 PO; -MELA5TAB40 PO; -NALT50TA PO; +OLAN7.5T22 PO; -OMEG-135 PO; -PRAZ1 PO; +SERT-162 PO; +ZONI100C87 PO
[2023-02-13 19:14] VITALS: BP 109/70; PULSE 100; RESP 16; TEMP 98.3
[2023-02-13] MEDS ORDERED: DIPH25CA85 PO (19:25)
== END 2023-02-13 19:50 | disposition home or self-care (01) ==
LOC: EMS 18:57
DX: L30.9 Dermatitis, unspecified (principal); F41.9 Anxiety disorder, unspecified; F32.A Depression, unspecified; F20.9 Schizophrenia, unspecified
CPT/HCPCS: 99282; Z7502

== ENCOUNTER 2023-04-15 19:37 | Emergency (ER) | payer OTHER ==
[~2023-04-15] VITALS: Ht 157.5 cm; Wt 45.5 kg
[~2023-04-15 19:37] MED LIST changes: +DIPH25CA85 PO
[2023-04-15 20:00] VITALS: TEMP 98.2
[2023-04-15] MEDS ORDERED: LORazepam 1 MG TABLET PO ONE (20:45)
[2023-04-15] MEDS ORDERED: OLANZapine 5 MG TABLET PO ONE (20:45)
[2023-04-15 20:58] LABS: BASOPHILS % (AUTO) 0.7 % (0.0-2.0); EOSINOPHILS % (AUTO) 0.1 % (1.0-6.0); HEMATOCRIT 39.4 % (36-46); HEMOGLOBIN 13.1 g/dL (12.0-16.0); LYMPHOCYTES # (AUTO) 1.7 K/uL (1.0-4.8); LYMPHOCYTES % (AUTO) 21.2 % (22.0-44.0); MEAN CORPUSCULAR HEMOGLOBIN 32.9 pg (26.0-34.0); MEAN CORPUSCULAR HGB CONC 33.2 G/dL (31.0-37.0); MEAN CORPUSCULAR VOLUME 99 fL (80-100); MONOCYTES # (AUTO) 0.7 K/uL (0.1-1.0); MONOCYTES % (AUTO) 9.4 % (2.0-9.0); NEUTROPHILS # (AUTO) 5.4 K/uL (1.8-7.7); NEUTROPHILS % (AUTO) 68.6 % (40.0-70.0); PLATELET COUNT (AUTO) 263 K/uL (150-450); RED BLOOD CELL COUNT(AUTO) 3.98 MIL/uL (4.00-5.20); RED CELL DISTRIBUTION WIDTH 12.6 % (11.5-14.5); WHITE BLOOD COUNT (AUTO) 7.8 K/uL (4.5-11.0)
[2023-04-15 21:11] LABS: ANION GAP 11 mmol/L (8-16); CALCIUM, TOTAL 8.8 mg/dL (8.8-10.5); CARBON DIOXIDE 23 mmol/L (22-29); CHLORIDE 102 mmol/L (98-107); GLOMERULAR FILTR. RATE CALC > 60 mL/min (>60); GLUCOSE,RANDOM 96 mg/dL (70-110); POTASSIUM 3.4 mmol/L (3.5-5.1); SODIUM SERUM 136 mmol/L (136-145); UREA NITROGEN, BLOOD 6 mg/dL (7-18)
[2023-04-15 21:16] LABS: ALANINE AMINOTRANSFERASE 11 U/L (12-78); ALBUMIN 3.9 g/dL (3.4-5.0); ALKALINE PHOSPHATASE 86 U/L (46-116); ASPARTATE AMINOTRANSFERASE 13 U/L (15-37); BILIRUBIN,TOTAL 0.2 mg/dL (0.1-1.0); TOTAL PROTEIN, SERUM 7.7 g/dL (6.4-8.2)
[2023-04-15 21:21] LABS: ALCOHOL, BLOOD (SERUM) < 3 mg/dL (0-10)
[2023-04-16 05:00] VITALS: BP 128/64; PULSE 90; RESP 18
[2023-04-16 07:14] LABS: ALCOHOL, URINE DRUG SCREEN NEGATIVE (NEGATIVE); AMPHET/METH SCREEN,URINE NEGATIVE (NEGATIVE); BARBITURATE SCREEN, URINE NEGATIVE (NEGATIVE); BENZODIAZEPINES SCREEN,URINE POSITIVE (NEGATIVE); CANNABINOID SCREEN,URINE NEGATIVE (NEGATIVE); COCAINE SCREEN,URINE NEGATIVE (NEGATIVE); METHADONE SCREEN, URINE NEGATIVE (NEGATIVE); OPIATE SCREEN,URINE NEGATIVE (NEGATIVE); PHENCYCLIDINE SCREEN,URINE NEGATIVE (NEGATIVE)
== END 2023-04-15 22:00 | disposition home or self-care (01) ==
LOC: EMS 19:38
DX: F41.9 Anxiety disorder, unspecified (principal); F32.A Depression, unspecified; F20.9 Schizophrenia, unspecified
CPT/HCPCS: 99283; 80053; 84703; 85025; 36415; 80307; G0480

== ENCOUNTER 2023-04-19 21:58 | Emergency (ER) | payer OTHER ==
[~2023-04-19] VITALS: Ht 157.5 cm; Wt 65.0 kg
[2023-04-19 22:09] VITALS: TEMP 98
[2023-04-19 23:17] LABS: BASOPHILS % (AUTO) 0.7 % (0.0-2.0); EOSINOPHILS % (AUTO) 0.5 % (1.0-6.0); HEMATOCRIT 38.8 % (36-46); HEMOGLOBIN 12.7 g/dL (12.0-16.0); LYMPHOCYTES # (AUTO) 2.3 K/uL (1.0-4.8); MEAN CORPUSCULAR HEMOGLOBIN 32.5 pg (26.0-34.0); MEAN CORPUSCULAR HGB CONC 32.7 G/dL (31.0-37.0); MEAN CORPUSCULAR VOLUME 100 fL (80-100); MONOCYTES # (AUTO) 0.8 K/uL (0.1-1.0); MONOCYTES % (AUTO) 9.4 % (2.0-9.0); NEUTROPHILS # (AUTO) 5.7 K/uL (1.8-7.7); NEUTROPHILS % (AUTO) 63.4 % (40.0-70.0); PLATELET COUNT (AUTO) 252 K/uL (150-450); RED CELL DISTRIBUTION WIDTH 12.6 % (11.5-14.5); WHITE BLOOD COUNT (AUTO) 8.9 K/uL (4.5-11.0)
[2023-04-19 23:29] LABS: ANION GAP 11 mmol/L (8-16); CALCIUM, TOTAL 8.8 mg/dL (8.8-10.5); CARBON DIOXIDE 21 mmol/L (22-29); CHLORIDE 104 mmol/L (98-107); CREATININE 0.58 mg/dL (0.60-1.30); GLOMERULAR FILTR. RATE CALC > 60 mL/min (>60); GLUCOSE,RANDOM 107 mg/dL (70-110); POTASSIUM 3.6 mmol/L (3.5-5.1); SODIUM SERUM 136 mmol/L (136-145); UREA NITROGEN, BLOOD 8 mg/dL (7-18)
[2023-04-19 23:36] LABS: B-TYPE NATRIURETIC PEPTIDE < 5 pg/mL (0-100)
[2023-04-19 23:37] LABS: TROPONIN I-HIGH SENSITIVITY Less Than 4 ng/L (<51)
[2023-04-19 23:40] LABS: ALANINE AMINOTRANSFERASE 9 U/L (12-78); ALBUMIN 3.8 g/dL (3.4-5.0); ALKALINE PHOSPHATASE 80 U/L (46-116); ASPARTATE AMINOTRANSFERASE 12 U/L (15-37); BILIRUBIN,TOTAL 0.3 mg/dL (0.1-1.0); CREATINE KINASE, TOTAL ONLY 78 U/L (26-192); TOTAL PROTEIN, SERUM 7.5 g/dL (6.4-8.2)
[2023-04-19 23:42] LABS: ALCOHOL, BLOOD (SERUM) < 3 mg/dL (0-10)
[2023-04-20 01:00] VITALS: BP 125/77; PULSE 79; RESP 20
== END 2023-04-20 01:20 | disposition home or self-care (01) ==
LOC: EMS 21:58
DX: R42 Dizziness and giddiness (principal); F41.9 Anxiety disorder, unspecified; F32.A Depression, unspecified; F20.9 Schizophrenia, unspecified; R56.9 Unspecified convulsions
CPT/HCPCS: 99284; 80053; 82550; 83880; 84484; 84703; 85025; 36415; 93005; G0480

== ENCOUNTER 2023-04-23 18:25 | Emergency (ER) | payer OTHER ==
[~2023-04-23] VITALS: Ht 152.4 cm; Wt 45.5 kg
[2023-04-23 18:42] VITALS: TEMP 97.8
[2023-04-23] MEDS ORDERED: CLOB10TA17 PO (19:50)
[2023-04-23] MEDS ORDERED: DOCU100C33 PO (19:50)
[2023-04-23] MEDS ORDERED: IBUPROFEN 400 MG TABLET PO ONE (20:00)
[2023-04-23 20:08] LABS: BASOPHILS % (AUTO) 0.4 % (0.0-2.0); EOSINOPHILS % (AUTO) 0 % (1.0-6.0); HEMOGLOBIN 13.3 g/dL (12.0-16.0); LYMPHOCYTES # (AUTO) 1.2 K/uL (1.0-4.8); LYMPHOCYTES % (AUTO) 11.7 % (22.0-44.0); MEAN CORPUSCULAR HGB CONC 33.3 G/dL (31.0-37.0); MEAN CORPUSCULAR VOLUME 99 fL (80-100); MONOCYTES # (AUTO) 0.6 K/uL (0.1-1.0); MONOCYTES % (AUTO) 6.3 % (2.0-9.0); NEUTROPHILS # (AUTO) 8.3 K/uL (1.8-7.7); NEUTROPHILS % (AUTO) 81.6 % (40.0-70.0); PLATELET COUNT (AUTO) 264 K/uL (150-450); RED BLOOD CELL COUNT(AUTO) 4.04 MIL/uL (4.00-5.20); RED CELL DISTRIBUTION WIDTH 12.8 % (11.5-14.5); WHITE BLOOD COUNT (AUTO) 10.2 K/uL (4.5-11.0)
[2023-04-23 20:17] LABS: ANION GAP 12 mmol/L (8-16); CALCIUM, TOTAL 9.1 mg/dL (8.8-10.5); CARBON DIOXIDE 23 mmol/L (22-29); CHLORIDE 105 mmol/L (98-107); GLOMERULAR FILTR. RATE CALC > 60 mL/min (>60); GLUCOSE,RANDOM 106 mg/dL (70-110); POTASSIUM 3.4 mmol/L (3.5-5.1); SODIUM SERUM 140 mmol/L (136-145); UREA NITROGEN, BLOOD 7 mg/dL (7-18)
[2023-04-23 20:21] LABS: ALANINE AMINOTRANSFERASE 12 U/L (12-78); ALBUMIN 4.1 g/dL (3.4-5.0); ALKALINE PHOSPHATASE 85 U/L (46-116); ASPARTATE AMINOTRANSFERASE 13 U/L (15-37); BILIRUBIN,TOTAL 0.2 mg/dL (0.1-1.0)
[2023-04-23 20:39] LABS: COVID AG,FIA SOURCE NASAL SWAB
[2023-04-23 21:02] LABS: SARS-COV2 (COVID) ANTIGEN,FIA Negative (Negative)
[2023-04-23 21:58] VITALS: BP 128/82; PULSE 110; RESP 16
== END 2023-04-23 22:07 | disposition home or self-care (01) ==
LOC: EMS 18:26
DX: R09.1 Pleurisy (principal); F41.9 Anxiety disorder, unspecified; F32.A Depression, unspecified; F20.9 Schizophrenia, unspecified; Z20.822 Contact with and (suspected) exposure to COVID-19
CPT/HCPCS: 71045; 80053; 84703; 85025; 93005; 99285; 36415-L1; 36415-TC

== ENCOUNTER 2023-04-26 21:21 | Emergency (ER) | payer OTHER ==
[~2023-04-26] VITALS: Ht 157.5 cm; Wt 45.0 kg
[~2023-04-26 21:21] MED LIST changes: +CLOB10TA17 PO; +DOCU100C33 PO
[2023-04-26 21:36] VITALS: BP 116/68; PULSE 109; RESP 15
[2023-04-26 22:21] LABS: ANION GAP 12 mmol/L (8-16); BASOPHILS % (AUTO) 0.5 % (0.0-2.0); CALCIUM, TOTAL 9.3 mg/dL (8.8-10.5); CARBON DIOXIDE 23 mmol/L (22-29); CHLORIDE 103 mmol/L (98-107); CREATININE 0.79 mg/dL (0.60-1.30); EOSINOPHILS % (AUTO) 0.2 % (1.0-6.0); GLOMERULAR FILTR. RATE CALC > 60 mL/min (>60); GLUCOSE,RANDOM 100 mg/dL (70-110); HEMATOCRIT 39.6 % (36-46); HEMOGLOBIN 13.3 g/dL (12.0-16.0); LYMPHOCYTES # (AUTO) 2.3 K/uL (1.0-4.8); LYMPHOCYTES % (AUTO) 24.5 % (22.0-44.0); MEAN CORPUSCULAR HGB CONC 33.5 G/dL (31.0-37.0); MEAN CORPUSCULAR VOLUME 99 fL (80-100); MONOCYTES # (AUTO) 0.7 K/uL (0.1-1.0); NEUTROPHILS # (AUTO) 6.5 K/uL (1.8-7.7); NEUTROPHILS % (AUTO) 67.8 % (40.0-70.0); PLATELET COUNT (AUTO) 256 K/uL (150-450); RED BLOOD CELL COUNT(AUTO) 4.02 MIL/uL (4.00-5.20); RED CELL DISTRIBUTION WIDTH 12.9 % (11.5-14.5); SODIUM SERUM 138 mmol/L (136-145); UREA NITROGEN, BLOOD 12 mg/dL (7-18); WHITE BLOOD COUNT (AUTO) 9.6 K/uL (4.5-11.0)
[2023-04-26 22:27] LABS: ALANINE AMINOTRANSFERASE 8 U/L (12-78); ALBUMIN 4.2 g/dL (3.4-5.0); ALKALINE PHOSPHATASE 84 U/L (46-116); ASPARTATE AMINOTRANSFERASE 10 U/L (15-37); BILIRUBIN,TOTAL 0.2 mg/dL (0.1-1.0); CREATINE KINASE, TOTAL ONLY 66 U/L (26-192); TOTAL PROTEIN, SERUM 8.1 g/dL (6.4-8.2)
[2023-04-26 22:29] LABS: PROTHROMBIN TIME 10.1 SEC (9.4-11.6)
[2023-04-26 22:51] LABS: B-TYPE NATRIURETIC PEPTIDE < 5 pg/mL (0-100)
[2023-04-26 22:52] LABS: TROPONIN I-HIGH SENSITIVITY 4 ng/L (<51)
[2023-04-26] MEDS ORDERED: POTASSIUM CHLORIDE 20 MEQ ER TABLET PO ONE (23:00)
== END 2023-04-27 00:18 | disposition home or self-care (01) ==
LOC: EMS 21:23
DX: R07.89 Other chest pain (principal); E87.6 Hypokalemia; F25.9 Schizoaffective disorder, unspecified
CPT/HCPCS: 71045; 80053; 82550; 83880; 84484; 84703; 85025; 85610; 85730; 93005; 99285; 36415-L1; 36415-TC

== ENCOUNTER 2023-05-31 19:44 | Emergency (ER) | payer OTHER ==
[~2023-05-31] VITALS: Ht 152.4 cm; Wt 45.5 kg
[2023-05-31 21:15] LABS: PH,URINE DRUG SCREEN 5.5 (5.0-8.0)
[2023-05-31 21:19] LABS: ALCOHOL, URINE DRUG SCREEN NEGATIVE (NEGATIVE); AMPHET/METH SCREEN,URINE NEGATIVE (NEGATIVE); BARBITURATE SCREEN, URINE NEGATIVE (NEGATIVE); BENZODIAZEPINES SCREEN,URINE POSITIVE (NEGATIVE); CANNABINOID SCREEN,URINE NEGATIVE (NEGATIVE); COCAINE SCREEN,URINE NEGATIVE (NEGATIVE); METHADONE SCREEN, URINE NEGATIVE (NEGATIVE); OPIATE SCREEN,URINE NEGATIVE (NEGATIVE); PHENCYCLIDINE SCREEN,URINE NEGATIVE (NEGATIVE)
[2023-05-31 21:32] LABS: BASOPHILS % (AUTO) 0.3 % (0.0-2.0); EOSINOPHILS % (AUTO) 0 % (1.0-6.0); HEMATOCRIT 39.2 % (36-46); LYMPHOCYTES # (AUTO) 1.3 K/uL (1.0-4.8); LYMPHOCYTES % (AUTO) 9.9 % (22.0-44.0); MEAN CORPUSCULAR HEMOGLOBIN 32.4 pg (26.0-34.0); MEAN CORPUSCULAR HGB CONC 33.1 G/dL (31.0-37.0); MEAN CORPUSCULAR VOLUME 98 fL (80-100); MONOCYTES # (AUTO) 0.5 K/uL (0.1-1.0); MONOCYTES % (AUTO) 3.9 % (2.0-9.0); NEUTROPHILS # (AUTO) 11.5 K/uL (1.8-7.7); PLATELET COUNT (AUTO) 286 K/uL (150-450); RED BLOOD CELL COUNT(AUTO) 4.01 MIL/uL (4.00-5.20); RED CELL DISTRIBUTION WIDTH 12.8 % (11.5-14.5); WHITE BLOOD COUNT (AUTO) 13.4 K/uL (4.5-11.0)
[2023-05-31 21:34] LABS: NEUTROPHILS % (AUTO) 85.9 % (40.0-70.0)
[2023-05-31 21:36] LABS: ANION GAP 16 mmol/L (8-16); CALCIUM, TOTAL 9.4 mg/dL (8.8-10.5); CARBON DIOXIDE 18 mmol/L (22-29); CHLORIDE 102 mmol/L (98-107); CREATININE 0.75 mg/dL (0.60-1.30); GLOMERULAR FILTR. RATE CALC > 60 mL/min (>60); GLUCOSE,RANDOM 117 mg/dL (70-110); POTASSIUM 3.4 mmol/L (3.5-5.1); SODIUM SERUM 136 mmol/L (136-145); UREA NITROGEN, BLOOD 8 mg/dL (7-18)
[2023-05-31 21:41] LABS: ALANINE AMINOTRANSFERASE 17 U/L (12-78); ALBUMIN 4.2 g/dL (3.4-5.0); ALKALINE PHOSPHATASE 84 U/L (46-116); ASPARTATE AMINOTRANSFERASE 12 U/L (15-37); BILIRUBIN,TOTAL 0.3 mg/dL (0.1-1.0); TOTAL PROTEIN, SERUM 8.8 g/dL (6.4-8.2)
[2023-05-31 21:44] LABS: TROPONIN I-HIGH SENSITIVITY 4 ng/L (<51)
[2023-05-31 23:38] VITALS: TEMP 98.5
[2023-06-01 02:40] VITALS: BP 116/77; PULSE 105; RESP 16
== END 2023-06-01 05:34 | disposition home or self-care (01) ==
LOC: EMS 19:45
DX: F41.9 Anxiety disorder, unspecified (principal); F31.9 Bipolar disorder, unspecified; F25.9 Schizoaffective disorder, unspecified
CPT/HCPCS: 99285; 71045; 80053; 84484; 84703; 85025; 36415; 93005; 80307; G0480